=== PATIENT | female | born 1970 | race Caucasian/White ===

== ENCOUNTER 2020-09-04 11:22 | Emergency (ER) | payer OTHER ==
[~2020-09-04 11:22] MED LIST: IBUPROFEN600 MG PO
[2020-09-04] MEDS ORDERED: PULMICORT0.5 MG/21 INH (17:27)
[2020-09-04] MEDS ORDERED: HYDROXYCHLOROQ200 MG PO (17:27)
[2020-09-04] MEDS ORDERED: AZITHROMYCIN250 MG PO (17:27)
== END 2020-09-04 20:32 | disposition home or self-care (01) ==
LOC: ER1 11:22
DX: U07.1 COVID-19 (principal); Z79.52 Long term (current) use of systemic steroids
CPT/HCPCS: 0240U; 71046; 87081; 87880; 99284; M0239

== ENCOUNTER 2020-11-11 18:28 | Emergency (ER) | payer OTHER ==
[~2020-11-11 18:28] MED LIST changes: +AZITHROMYCIN250 MG PO; +HYDROXYCHLOROQ200 MG PO; +PULMICORT0.5 MG/21 INH
[2020-11-11 19:54] LABS: HEMOGLOBIN 14.1 gm/dl (12.3-15.3); RED BLOOD COUNT 4.59 M/UL (4.00-5.10); WHITE BLOOD COUNT 11.4 K/UL (4.5-11.0)
[2020-11-11 20:08] LABS: BUN/CREATININE RATIO 13 (0-10)
[2020-11-11] MEDS ORDERED: IBUPROFEN600 MG PO (22:55)
== END 2020-11-11 23:21 | disposition home or self-care (01) ==
LOC: ER1 18:28
PROVIDERS: Internal Medicine
DX: R07.89 Other chest pain (principal); J44.9 Chronic obstructive pulmonary disease, unspecified; Z86.16 Personal history of COVID-19; Z90.89 Acquired absence of other organs
CPT/HCPCS: 71250; 71275; 80053; 81001; 85025; 93005; 96374; 96375; 99284; J2270; J2405; Q9967

== ENCOUNTER 2021-01-31 21:58 | Emergency (ER) | payer OTHER ==
[2021-01-31 22:40] LABS: RED BLOOD COUNT 4.35 M/UL (4.00-5.10); WHITE BLOOD COUNT 10.2 K/UL (4.5-11.0)
[2021-01-31 23:17] LABS: BUN/CREATININE RATIO 20 (0-10)
[2021-02-01] MEDS ORDERED: VENTOLIN HFA 66.7 GM INH (03:09)
[2021-02-01] MEDS ORDERED: DOXYCYCLINE MO100 MG PO (03:09)
== END 2021-02-01 03:30 | disposition home or self-care (01) ==
LOC: ER1 21:58
PROVIDERS: Physician Assistant
DX: U07.1 COVID-19 (principal)
CPT/HCPCS: 0240U; 71045; 80053; 82550; 82553; 83874; 84484; 85025; 87081; 87880; 93005; 96374; 99285; J1100

== ENCOUNTER → 2021-03-19 | Outpatient (CLI) | payer OTHER ==
[~2021-03-19] MED LIST changes: +DOXYCYCLINE MO100 MG PO; +VENTOLIN HFA 66.7 GM INH
[2021-03-19 08:55] LABS: BUN/CREATININE RATIO 10 (0-10)
== END ==
LOC: CT 03-18 08:30
DX: R10.10 Upper abdominal pain, unspecified (principal); I42.0 Dilated cardiomyopathy; R19.7 Diarrhea, unspecified; R93.5 Abnormal findings on diagnostic imaging of other abdominal regions, including retroperitoneum
CPT/HCPCS: 36415; 80048; Q9967

== ENCOUNTER 2021-03-22 20:05 | Emergency (ER) | payer OTHER ==
[2021-03-23 00:40] LABS: HEMOGLOBIN 13.2 gm/dl (12.3-15.3); RED BLOOD COUNT 4.27 M/UL (4.00-5.10); WHITE BLOOD COUNT 10.5 K/UL (4.5-11.0)
[2021-03-23 00:46] LABS: BUN/CREATININE RATIO 11 (0-10)
[2021-03-23] MEDS ORDERED: BUMETANIDE1 MG PO (02:38)
[2021-03-23] MEDS ORDERED: CEPHALEXIN500 M1 PO (02:38)
== END 2021-03-23 03:22 | disposition home or self-care (01) ==
LOC: ER1 20:05
PROVIDERS: Emergency Medicine
DX: R60.0 Localized edema (principal); N39.0 Urinary tract infection, site not specified; I50.9 Heart failure, unspecified; J44.9 Chronic obstructive pulmonary disease, unspecified
CPT/HCPCS: 71045; 80053; 81001; 82550; 82553; 83690; 83735; 83874; 83880; 84439; 84443; 84484; 84703; 85025; 93005; 96365; 99284

== ENCOUNTER → 2021-04-05 | Outpatient (CLI) | payer OTHER ==
[~2021-04-05] MED LIST changes: +BUMETANIDE1 MG PO; +CEPHALEXIN500 M1 PO
== END ==
LOC: KOH-I 08:30
DX: R10.11 Right upper quadrant pain (principal)
CPT/HCPCS: 76705

== ENCOUNTER 2021-04-11 13:47 | Emergency (ER) | payer OTHER ==
[2021-04-11 15:35] LABS: HEMOGLOBIN 12.8 gm/dl (12.3-15.3); RED BLOOD COUNT 3.93 M/UL (4.00-5.10); WHITE BLOOD COUNT 11.8 K/UL (4.5-11.0)
[2021-04-11 15:54] LABS: BUN/CREATININE RATIO 19 (0-10)
[2021-04-11] MEDS ORDERED: HYDROCODON-ACE1 EAC4 PO (16:32)
== END 2021-04-11 16:43 | disposition home or self-care (01) ==
LOC: ER1 13:47
PROVIDERS: Preventive Medicine Occupational Medicine
DX: S16.1XXA Strain of muscle, fascia and tendon at neck level, initial encounter (principal); S39.012A Strain of muscle, fascia and tendon of lower back, initial encounter; M06.9 Rheumatoid arthritis, unspecified; V49.40XA Driver injured in collision with unspecified motor vehicles in traffic accident, initial encounter; Y92.410 Unspecified street and highway as the place of occurrence of the external cause
CPT/HCPCS: 70450; 71045; 72125; 72128; 72131; 73030; 80048; 85025; 93005; 99285

== ENCOUNTER 2021-04-16 20:55 | Emergency (ER) | payer OTHER ==
[~2021-04-16 20:55] MED LIST changes: +HYDROCODON-ACE1 EAC4 PO
[2021-04-16 21:32] LABS: HEMOGLOBIN 12.6 gm/dl (12.3-15.3); RED BLOOD COUNT 3.89 M/UL (4.00-5.10)
[2021-04-16 22:03] LABS: BUN/CREATININE RATIO 5 (0-10)
[2021-04-17 00:14] LABS: BORDETELLA PARAPERTUSSIS Not Detected (Not Detectd); BORDETELLA PERTUSSIS Not Detected (Not Detectd); CHLAMYDIA PNEUMONIAE Not Detected (Not Detectd); CORONAVIRUS HKU1 Not Detected (Not Detectd); CORONAVIRUS NL63 Not Detected (Not Detectd); CORONAVIRUS OC43 Not Detected (Not Detectd); CORONOAVIRUS 229E Not Detected (Not Detectd); HUMAN METAPNEUMOVIRUS Not Detected (Not Detectd); HUMAN RHINOVIRUS/ENTEROVIRUS Not Detected (Not Detectd); INFLUENZA A Not Detected (Not Detectd); INFLUENZA B Not Detected (Not Detectd); MYCOPLASMA PNEUMONIAE Not Detected (Not Detectd); PARAINFLUENZA VIRUS 1 Not Detected (Not Detectd); PARAINFLUENZA VIRUS 2 Not Detected (Not Detectd); PARAINFLUENZA VIRUS 3 Not Detected (Not Detectd); PARAINFLUENZA VIRUS 4 Not Detected (Not Detectd); RESPIRATORY SYNCYTIAL VIRUS Not Detected (Not Detectd)
[2021-04-17 01:09] LABS: SARS-CoV-2 NOT DETECTED (Not Detectd)
[2021-04-17] MEDS ORDERED: ONDANSETRON ODT4 MG SL (02:41)
[2021-04-17] MEDS ORDERED: CEFDINIR300 MG PO (02:41)
[2021-04-17] MEDS ORDERED: AZITHROMYCIN500 MG PO (02:41)
== END 2021-04-17 03:00 | disposition home or self-care (01) ==
LOC: ER1 20:55
PROVIDERS: Physician Assistant
DX: N39.0 Urinary tract infection, site not specified (principal); E87.6 Hypokalemia; J18.9 Pneumonia, unspecified organism; E78.5 Hyperlipidemia, unspecified; J44.9 Chronic obstructive pulmonary disease, unspecified; Z20.822 Contact with and (suspected) exposure to COVID-19; I10 Essential (primary) hypertension; Z79.899 Other long term (current) drug therapy
CPT/HCPCS: 80053; 81001; 83605; 83690; 84703; 85025; 87040; 87633; 99284; Q9967

== ENCOUNTER → 2021-07-11 | Outpatient (CLI) | payer OTHER ==
[~2021-07-11] MED LIST changes: +AZITHROMYCIN500 MG PO; +CEFDINIR300 MG PO; +ONDANSETRON ODT4 MG SL
== END ==
LOC: CARD REHAB 13:28
DX: J98.51 Mediastinitis (principal)
CPT/HCPCS: G0424

== ENCOUNTER 2021-09-29 14:02 | Inpatient (IN) | payer MEDICARE, OTHER ==
[~2021-09-29] VITALS: Ht 170.2 cm; Wt 92.1 kg
[2021-09-29 14:58] LABS: HEMOGLOBIN 11.9 gm/dl (12.3-15.3); RED BLOOD COUNT 4.03 M/UL (4.00-5.10); WHITE BLOOD COUNT 13.4 K/UL (4.5-11.0)
[2021-09-29 15:19] LABS: BUN/CREATININE RATIO 14 (0-10)
[2021-09-30] MEDS ORDERED: CLONAZEPAM1 MG PO (10:27)
[2021-09-30] MEDS ORDERED: AMOX TR-K CLV1 EAC4 PO (10:27)
[2021-09-30] MEDS ORDERED: GABAPENTIN800 MG PO (10:28)
[2021-09-30] MEDS ORDERED: DOXEPIN HCL25 MG PO (10:28)
[2021-09-30] MEDS ORDERED: NALOXONE HCL4 MG (10:29)
[2021-09-30] MEDS ORDERED: HYDROCODON-ACE1 EAC6 PO (10:29)
[2021-09-30] MEDS ORDERED: ATORVASTATIN CA80 MG PO (10:29)
[2021-09-30] MEDS ORDERED: PREDNISONE20 MG PO (10:30)
[2021-09-30] MEDS ORDERED: VITAMIN D21250 MCG PO (10:30)
[2021-09-30] MEDS ORDERED: CYCLOBENZAPRINE10 MG PO (10:30)
[2021-09-30] MEDS ORDERED: ZOFRAN ODT 4 MG4 MG PO (10:31)
[2021-10-01 05:07] LABS: HEMOGLOBIN 10.9 gm/dl (12.3-15.3); RED BLOOD COUNT 3.68 M/UL (4.00-5.10); WHITE BLOOD COUNT 11.9 K/UL (4.5-11.0)
[2021-10-01 05:33] LABS: BUN/CREATININE RATIO 12 (0-10)
[2021-10-01 19:02] LABS: HEMOGLOBIN 10.9 gm/dl (12.3-15.3); RED BLOOD COUNT 3.69 M/UL (4.00-5.10); WHITE BLOOD COUNT 11.7 K/UL (4.5-11.0)
[2021-10-02 07:38] LABS: BUN/CREATININE RATIO 6 (0-10)
[2021-10-02 08:21] LABS: HEMOGLOBIN 10.5 gm/dl (12.3-15.3); RED BLOOD COUNT 3.49 M/UL (4.00-5.10); WHITE BLOOD COUNT 10.6 K/UL (4.5-11.0)
[2021-10-02 15:07] LABS: BODY FLUID SOURCE PLEURAL
[2021-10-02 15:08] LABS: POLYMORPHONUCLEAR % 26 (0-25); RBC (AUTOMATED) 2500 (0-100000); WBC (AUTOMATED) 127 (0-500)
[2021-10-02 15:26] LABS: AMYLASE, BODY FLUID 54 U/L; LDH, BODY FLUID 96 U/L; TOTAL PROTEIN, BODY FLUID 1.6 gm/dL
[2021-10-03 05:20] LABS: HEMOGLOBIN 10.3 gm/dl (12.3-15.3); RED BLOOD COUNT 3.56 M/UL (4.00-5.10)
[2021-10-03 06:01] LABS: BUN/CREATININE RATIO 9 (0-10)
[2021-10-03 16:13] LABS: HISTOPLASMA GAL'MANNAN AG UR <0.5 (<0.5 ng/mL)
[2021-10-04 06:15] LABS: HEMOGLOBIN 10.1 gm/dl (12.3-15.3); RED BLOOD COUNT 3.41 M/UL (4.00-5.10); WHITE BLOOD COUNT 7.7 K/UL (4.5-11.0)
[2021-10-04 06:47] LABS: BUN/CREATININE RATIO 15 (0-10)
[2021-10-05 00:10] LABS: HISTOPLASMA MYCELIAL CF AB. Negative (Neg:<1:2); HISTOPLASMA MYCELIAL ID AB. Negative (Negative); HISTOPLASMA YEAST CF AB Negative (Neg:<1:2)
[2021-10-05 06:40] LABS: HEMOGLOBIN 9.9 gm/dl (12.3-15.3); RED BLOOD COUNT 3.32 M/UL (4.00-5.10); WHITE BLOOD COUNT 6.7 K/UL (4.5-11.0)
[2021-10-05 07:02] LABS: BUN/CREATININE RATIO 17 (0-10)
[2021-10-05] MEDS ORDERED: DIFLUCAN200 MG PO (17:00)
[2021-10-05] MEDS ORDERED: FUROSEMIDE20 MG PO (17:00)
[2021-10-05] MEDS ORDERED: DIGOXIN250 MCG PO (17:00)
[2021-10-05] MEDS ORDERED: AMOX TR-K CLV1 EAC4 PO (17:00)
[2021-10-05] MEDS ORDERED: DOXYCYCLINE HY100 M2 PO (17:00)
[2021-10-05] MEDS ORDERED: PULMICORT0.5 MG/2 M INH (17:19)
[2021-10-05] MEDS ORDERED: IPRATROPIU0.2 MG/1 M NEB (17:19)
[2021-10-05] MEDS ORDERED: PROTONIX40 MG PO (17:33)
[2021-10-05] MEDS ORDERED: ASPIRIN EC81 MG PO (17:33)
[2021-10-05] MEDS ORDERED: MYCOSTATIN100000 UTS PO (17:33)
== END 2021-10-05 20:32 | disposition home health service (06) | DRG 871 ==
LOC: ER1 14:02 → CCU 20:13 → CDU 20:13 → CCU 09-30 17:22 → MED SURG 4 10-03 12:18
PROVIDERS: Internal Medicine; Internal Medicine Pulmonary Disease; Physician Assistant Medical; ADMIT Internal Medicine
PROC: 3E03329 Introduction of Other Anti-infective into Peripheral Vein, Percutaneous Approach (ICD-10-PCS; 2021-09-29)
PROC: 5A0935A Assistance with Respiratory Ventilation, Less than 24 Consecutive Hours, High Flow/Velocity Cannula (ICD-10-PCS; 2021-10-01)
PROC: B24BZZZ Ultrasonography of Heart with Aorta (ICD-10-PCS; principal; 2021-10-02)
PROC: 0W9B3ZZ Drainage of Left Pleural Cavity, Percutaneous Approach (ICD-10-PCS; 2021-10-02)
PROC: 5A09357 Assistance with Respiratory Ventilation, Less than 24 Consecutive Hours, Continuous Positive Airway Pressure (ICD-10-PCS; 2021-10-02)
PROC: 5A0945A Assistance with Respiratory Ventilation, 24-96 Consecutive Hours, High Flow/Velocity Cannula (ICD-10-PCS; 2021-10-02)
PROC: 5A09357 Assistance with Respiratory Ventilation, Less than 24 Consecutive Hours, Continuous Positive Airway Pressure (ICD-10-PCS; 2021-10-04)
DX: A41.9 Sepsis, unspecified organism (principal); J96.21 Acute and chronic respiratory failure with hypoxia; J96.22 Acute and chronic respiratory failure with hypercapnia; Z20.822 Contact with and (suspected) exposure to COVID-19; J18.9 Pneumonia, unspecified organism; J15.9 Unspecified bacterial pneumonia; J98.51 Mediastinitis; J90 Pleural effusion, not elsewhere classified; I50.20 Unspecified systolic (congestive) heart failure; F11.20 Opioid dependence, uncomplicated; R65.20 Severe sepsis without septic shock; F41.9 Anxiety disorder, unspecified; M79.7 Fibromyalgia; G62.9 Polyneuropathy, unspecified; E78.5 Hyperlipidemia, unspecified; M62.838 Other muscle spasm; G89.29 Other chronic pain; M06.9 Rheumatoid arthritis, unspecified; E66.9 Obesity, unspecified; Z87.442 Personal history of urinary calculi; Z98.890 Other specified postprocedural states; Z82.49 Family history of ischemic heart disease and other diseases of the circulatory system; Z79.899 Other long term (current) drug therapy; Z79.52 Long term (current) use of systemic steroids; Z99.81 Dependence on supplemental oxygen; Z79.82 Long term (current) use of aspirin; Z68.30 Body mass index [BMI] 30.0-30.9, adult
CPT/HCPCS: ECHO; 0240U; 36415; 36600; 71045; 80048; 80053; 80076; 80202; 82150; 82550; 82553; 82803; 82945; 83605; 83615; 83735; 83880; 83986; 84100; 84157; 84439; 84443; 84484; 85025; 85027; 85379; 85610; 85730; 86140; 86612; 86698; 87040; 87070; 87081; 87205; 87385; 89051; 93005; 93306; 94640; 94660; 94664; 94760; 96374; 96375; 97116; 97161; 99285; C1729; C1751; C9113; J0696; J1160; J1335; J1650; J1940; J1956; J2270; J2405; J2550; J3370; J3465; J7030; J7070; Q9967

== ENCOUNTER → 2021-10-17 | Outpatient (CLI) | payer MEDICARE, OTHER ==
[~2021-10-17] MED LIST changes: +AMOX TR-K CLV1 EAC4 PO; +ASPIRIN EC81 MG PO; +ATORVASTATIN CA80 MG PO; +CLONAZEPAM1 MG PO; +CYCLOBENZAPRINE10 MG PO; +DIFLUCAN200 MG PO; +DIGOXIN250 MCG PO; +DOXEPIN HCL25 MG PO; +DOXYCYCLINE HY100 M2 PO; +FUROSEMIDE20 MG PO; +GABAPENTIN800 MG PO; +HYDROCODON-ACE1 EAC6 PO; +IPRATROPIU0.2 MG/1 M NEB; +MYCOSTATIN100000 UTS PO; +NALOXONE HCL4 MG; +PREDNISONE20 MG PO; +PROTONIX40 MG PO; +PULMICORT0.5 MG/2 M INH; +VITAMIN D21250 MCG PO; +ZOFRAN ODT 4 MG4 MG PO
[2021-10-17 14:40] LABS: HEMOGLOBIN 10.8 gm/dl (12.3-15.3); RED BLOOD COUNT 3.7 M/UL (4.00-5.10); WHITE BLOOD COUNT 16.2 K/UL (4.5-11.0)
[2021-10-17 14:49] LABS: BUN/CREATININE RATIO 16 (0-10)
== END ==
LOC: LBRF 14:11
PROVIDERS: Internal Medicine
DX: J18.9 Pneumonia, unspecified organism (principal)
CPT/HCPCS: 80053; 85025

== ENCOUNTER 2022-03-22 15:53 | Emergency (ER) | payer MEDICARE, OTHER ==
[2022-03-22 16:28] LABS: HEMOGLOBIN 11.8 gm/dl (12.3-15.3); RED BLOOD COUNT 4.04 M/UL (4.00-5.10); WHITE BLOOD COUNT 10.8 K/UL (4.5-11.0)
[2022-03-22 16:54] LABS: BUN/CREATININE RATIO 15 (0-10)
== END 2022-03-22 21:35 | disposition home or self-care (01) ==
LOC: ER1 15:53
DX: R09.02 Hypoxemia (principal); R05.9 Cough, unspecified; R25.1 Tremor, unspecified; R00.0 Tachycardia, unspecified; M06.9 Rheumatoid arthritis, unspecified
CPT/HCPCS: 71045; 80053; 82550; 82553; 83880; 84484; 85025; 93005; 99285; Q9967